=== PATIENT | female | born 1935 | race Caucasian/White ===

== ENCOUNTER → 2016-10-29 | Outpatient (CLI) | payer MEDICARE, OTHER ==
[~2016-10-29] MED LIST: ACETAMINOPHEN PO; ACIDOPHILUS PO; ACTOPLUS MET 151 TA2 PO; ALTOPREV20 MG PO; AMLODIPINE BESYL5 MG PO; ANTACID650 MG PO; ANUSOL-HC SUPP25 M1 PR; ASPIRIN; ASPIRINEC PO; AUGMENTIN PO; AUGMENTIN875 M1 PO; BACTRIM DS TABL1 TA1 PO; BACTRIM DS TABL1 TA2 PO; BUMEX PO; BUMEX2 MG PO; CALCIUM 500 + D1 TAB PO; CARAFATE PO; CARAFATE1 G PO; CERTAGEN PO; CHEWABLE ASPIRI81 MG PO; CINNAMON; CINNAMON PLUS1 EACH PO; CIPRO PO; COCONUT OIL1000 MG PO; CUBICIN; CYANOCOBALAM1000 MCG PO; DIABETIC MEDS; DONNATAL1 TA1 PO; FAMOTIDINE PO; FISH OIL 1,2001 CAP PO; FLOMAX0.4 M1 PO; GLUCOPHAGE XR500 MG PO; GLUCOSAMINE CHO1 CA1 PO; GLUCOTROL PO; GREEN TEA1 CAP PO; HUMALOG MI100 UNIT/1 INJ; HYDRALAZINE HCL25 MG PO; HYDRALAZINE PO; HYDROCODON-ACE1 EAC7 PO; INSULIN 70/30 SQ; IRON PO; IRON325 ( 65 ) PO; JANUVIA PO; K-DUR20 ME1 PO; KCL PO; LACTULOSE10 G/15 M1; LANTUS100 UNITS/ SUBQ; LASIX20 MG PO; LIDOCAINE HC20 MG/13 MM; LOPRESSOR HCT1 EACH PO; LOPRESSOR PO; LOTENSIN PO; LOTENSIN20 MG; LOTENSIN20 MG PO; LOVASTATIN20 M1 PO; LOVASTATIN20 MG PO; MACROBID100 MG DOB; METOPROLOL SUCC25 MG PO; METRONIDAZOLE PO; MEVACOR PO; MILK THISTLE200 M1 PO; MIRALAX17 GM PO; MUCAPHED TABLE1 EACH PO; MULTI VITAMIN1 EACH PO; MULTI-VITAMIN1 EAC1 PO; MYLANTA GAS80 M2; MYLICON PO; NIFEREX-150 CAP1 CAP PO; NOVOLIN 70100 UNITS/ SQ; NOVOLIN 70100 UNITS/ SUBQ; OYSTER CALCIUM500 MG PO; PANTOPRAZOLE SO40 MG PO; PEPCID PO; PHENERGAN25 MG PO; POTASSIUM CL PO; PROBIOTIC1 EAC1 PO; PROTONIX PO; PYRIDIUM PO; RELION NOV100 UNIT/1; RESTORIL7.5 MG PO; RESVERATROL PO; RESVERATROL100 MG PO; SEROQUEL PO; SEROQUEL25 MG PO; SERTRALINE HCL25 M1 PO; SIMETHICONE125 MG PO; SODIUM BICARBO650 MG PO; SODIUM BICARBONATE PO; ST JOSEPH ASPIR81 M1 PO; THISTLE PO; TRAMADOL HCL50 M2 PO; TRAMADOL PO; VICODIN 5/1 TAB 5/50 PO; VIT B-12 PO; VIT E PO; VITAMIN B12 1000MCG PO; VITAMIN B12-FO1 EACH PO; VITAMIN B122500 MCG PO; VITAMIN B650 M1 PO; VITAMIN D 4001 UDTAB PO; VITAMIN D1000 UNIT PO; VITAMIN D31000 UNIT PO; XIFAXAN550 MG PO; ZOFRAN PO; ZOFRANODT PO; [UNRECOGNIZED DRUG - OTHER] PO
--- NOTE | ~2016-10-29 | CR21 ---
[facility]. [facility] A Service of [facility] & [facility] RADIOLOGY TEXT RESULTS PATIENT: MARINE HENDERSON LOCATION: [facility] : 35 UNIT #: [id number] AGE: [address]: Silva Larson MD SEX: F ORDER DR: [id number] [address] [address] [id number] O MR#: [id number] Acc #: [id number] NAME: MARINE HENDERSON : 1935 SEX: F STUDY DATE/TIME: 10/29/2016 11:14 UNIT: [facility] ROOM: STUDY DESCRIPTION: CR Ankle Min 3 Views Rt Attending Physician: Silva Larson M.D. Referring Physician: Silva Larson M.D. Ordering Physician: Silva Larson M.D. Primary Care Physician: Silva Larson M.D. MEDICAL IMAGING REPORT This report is preliminary unless electronic signature is present. EXAM Right ankle HISTORY Unable to bear weight on the foot with foot pain since yesterday following physical therapy. TECHNIQUE 3 views of the right ankle were obtained. FINDINGS AP, lateral, and oblique projections of the ankle show satisfactory integrity of the joint mortise with a smooth articular surface. There is no identifiable fracture, dislocation, or radiopaque foreign body. IMPRESSION Normal right ankle. Dictated by... Gregorio Romero M.D. THIS IS AN ELECTRONICALLY VERIFIED REPORT Gregorio Romero M.D. at 11/11/2016 5:00 PM Carmen TD: 10/29/2016 16:12 JOB #: [id number] MEDICAL IMAGING REPORT Page 1 of 1
--- NOTE | ~2016-10-29 | CR124 ---
[facility] A Service of [facility] RADIOLOGY TEXT RESULTS PATIENT: MARINE HENDERSON LOCATION: [facility] : 35 UNIT #: [id number] AGE: [address]: Silva Larson MD SEX: F ORDER DR: [id number] [address] [address] [id number] O MR#: [id number] Acc #: [id number] NAME: MARINE HENDERSON : 1935 SEX: F STUDY DATE/TIME: 10/29/2016 11:14 UNIT: [facility] ROOM: STUDY DESCRIPTION: CR Foot 2 Views Rt Attending Physician: Silva Larson M.D. Referring Physician: Silva Larson M.D. Ordering Physician: Silva Larson M.D. Primary Care Physician: Silva Larson M.D. MEDICAL IMAGING REPORT This report is preliminary unless electronic signature is present. EXAM Right foot HISTORY Foot pain beginning yesterday. Unable to weight bear after physical therapy. TECHNIQUE Two views of the right foot were obtained. FINDINGS Mild degenerative changes are seen at the interphalangeal joint of the great toe and there is a small plantar heel spur. There is no evidence of fracture or bone destruction. No erosions are seen. No foreign body is noted. IMPRESSION Essentially negative foot. 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 Dictated by... Gregorio Romero M.D. THIS IS AN ELECTRONICALLY VERIFIED REPORT Gregorio Romero M.D. at 10/30/2016 3:40 PM DEJON/alejandro TD: 10/29/2016 16:13 JOB #: [id number] MEDICAL IMAGING REPORT [facility] A Service of [facility] RADIOLOGY TEXT RESULTS PATIENT: MARINE HENDERSON LOCATION: [facility] : 35 UNIT #: [id number] AGE: [address]: Silva Larson MD SEX: F ORDER DR: Page 1 of 1
== END | disposition home or self-care (01) ==
LOC: SRAD 11:05
DX: M25.571 Pain in right ankle and joints of right foot (principal); M79.671 Pain in right foot; M77.31 Calcaneal spur, right foot; M19.071 Primary osteoarthritis, right ankle and foot
CPT/HCPCS: 73610; 73620